=== PATIENT | male | born 1995 | race Two or more races ===

== ENCOUNTER 2021-01-30 17:14 | Emergency (ER) | payer SELFPAY ==
[~2021-01-30] VITALS: Ht 172.7 cm; Wt 98.0 kg
[2021-01-30 17:22] VITALS: BP 144/90
== END 2021-01-30 18:35 | disposition left against medical advice (07) ==
LOC: ER 17:14
DX: R11.10 Vomiting, unspecified (principal); Z53.21 Procedure and treatment not carried out due to patient leaving prior to being seen by health care provider